=== PATIENT | female | born 1995 | race American Indian/Alaskan Native ===

== ENCOUNTER 2017-01-16 15:33 | Emergency (ER) | payer OTHER ==
[2017-01-16] MEDS ORDERED: MOTRIN PO ONE (16:53)
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
--- NOTE | 2017-01-16 17:34 | Cat Scan Report ---
FINAL REPORT PROCEDURE: CT HEAD/BRAIN WO CON TECHNIQUE: Computerized tomography of the head was performed without contrast material. HISTORY: Trauma HEAD PAIN COMPARISON: No prior studies are available for comparison. FINDINGS: Brain: Brain density appears normal. No evidence of intracranial hemorrhage. No parenchymal hemorrhage, mass lesions or mass effect are seen. No abnormal extraxial fluid collects or masses are seen. Ventricles: Ventricles are normal size and are midline. Bone Windows: No evidence of skull fracture. Paranasal sinuses: Clear Mastoid air cells: Clear IMPRESSION: Negative exam. No evidence of intracranial hemorrhage or skull fracture.
--- NOTE | 2017-01-16 17:37 | Cat Scan Report ---
FINAL REPORT PROCEDURE: CT CERVICAL SPINE WO CON TECHNIQUE: Computerized tomography of the cervical spine was performed from the skull base to T1 without contrast material. HISTORY: Trauma NECK PAIN COMPARISON: No prior studies are available for comparison. FINDINGS: No fracture or subluxation is identified.. Prevertebral soft tissues appear normal. Bone density appears normal. Posterior elements are intact. No focal disc herniation or spinal stenosis is identified. C1-2: No significant abnormality. C2-3: No significant abnormality. C3-4: No significant abnormality. C4-5: No significant abnormality. C5-6: No significant abnormality. C6-7: No significant abnormality. C7-T1: No significant abnormality. Other: No additional findings. IMPRESSION: Negative exam. No fracture or subluxation is seen.
[2017-01-16 19:22] VITALS: BP 147/99
--- NOTE | 2017-01-17 07:39 | XRay Report ---
THORACIC SPINE: History: Back pain, injury. There is moderate dextroscoliosis in the mid and lower thoracic spine. No evidence for compression deformity, subluxation or bone lesion. The posterior ribs are unremarkable. IMPRESSION: Scoliosis. No acute injury is identified.
--- NOTE | 2017-01-17 07:40 | XRay Report ---
LUMBOSACRAL SPINE, 3 VIEWS: History: Back pain Findings: The vertebral bodies, disk spaces and posterior elements are intact. No compression deformity or malalignment. The SI joints are symmetric and unremarkable. Impression: 1. No evidence for acute injury to the lumbar spine.
== END 2017-01-16 18:45 | disposition home or self-care (01) ==
LOC: ED 15:33
DX: S16.1XXA Strain of muscle, fascia and tendon at neck level, initial encounter (principal); V49.49XA Driver injured in collision with other motor vehicles in traffic accident, initial encounter; Y93.9 Activity, unspecified; Y92.9 Unspecified place or not applicable; Y99.9 Unspecified external cause status
CPT/HCPCS: 70450; 72070; 72100; 72125; 99284

== ENCOUNTER 2019-04-22 19:55 | Emergency (ER) | payer OTHER ==
--- NOTE | 2019-04-22 20:15 | Emergency Department Report ---
ED General Adult HPI - General Stated complaint: HBP, N/V Time Seen by Provider: 04/22/19 20:13 - History of Present Illness Initial comments: 23-year-old female with a history of end-stage renal disease, gastroparesis, hypertension, and diabetes presents with the complaint of vomiting. Patient apparently was treated at the [facility] 2 times today and left AMA and was only able to tolerate Zofran. Patient and called EMS and was flavio t to this facility for management. Patient states that she went to dialysis earlier today. Patient states she's been noncompliant with her hypertensive therapy. Patient denies any chest pain. Patient denies any fever or chills. - Related Data Home Medications Medication Instructions Recorded Confirmed Last Taken Cholecalciferol (Vitd3)/Vit K2 [D3 1 each PO 1XW 07/08/17 07/08/17 Unknown + K2 Dots 1,000 Units Tab] Previous Rx's Medication Instructions Recorded Last Taken Type Insulin Glargine,Hum.rec.anlog 20 units SQ HS 30 Days vial 07/11/17 Unknown Rx [Lantus] Insulin Regular, Human [HumuLIN R] 5 - 8 units SQ QACHS 30 Days units 07/11/17 Unknown Rx Pantoprazole [Protonix TAB] 20 mg PO BID #60 tablet. 07/11/17 Unknown Rx Sucralfate [Carafate] 1 gm PO ACHS #90 tablet 07/11/17 Unknown Rx amLODIPine [Norvasc] 5 mg PO DAILY #30 tab 07/11/17 Unknown Rx Allergies Allergy/AdvReac Type Severity Reaction Status Date / Time NSAIDS (Non-Steroidal Allergy Unknown Verified 04/22/19 20:29 Anti-Inflamma ED Review of Systems ROS: Stated complaint: HBP, N/V Other details as noted in HPI Constitutional: denies: chills, fever Eyes: denies: eye pain, eye discharge, vision change ENT: denies: ear pain, throat pain Respiratory: denies: cough, shortness of breath, wheezing Cardiovascular: denies: chest pain, palpitations Endocrine: no symptoms reported Gastrointestinal: nausea, vomiting. denies: abdominal pain, diarrhea Genitourinary: denies: urgency, dysuria, discharge Musculoskeletal: denies: back pain, joint swelling, arthralgia Skin: denies: rash, lesions Neurological: denies: headache, weakness, paresthesias Psychiatric: denies: anxiety, depression Hematological/Lymphatic: denies: easy bleeding, easy bruising ED Past Medical Hx - Past Medical History Hx Hypertension: Yes Hx Diabetes: Yes Hx Renal Disease: Yes - Social History Smoking Status: Never Smoker - Medications Home Medications: Home Medications Medication Instructions Recorded Confirmed Last Taken Type Cholecalciferol (Vitd3)/Vit K2 [D3 1 each PO 1XW 07/08/17 07/08/17 Unknown History + K2 Dots 1,000 Units Tab] Insulin Glargine,Hum.rec.anlog 20 units SQ HS 30 Days vial 07/11/17 Unknown Rx [Lantus] Insulin Regular, Human [HumuLIN R] 5 - 8 units SQ QACHS 30 Days units 07/11/17 Unknown Rx Pantoprazole [Protonix TAB] 20 mg PO BID #60 tablet.dr 07/11/17 Unknown Rx Sucralfate [Carafate] 1 gm PO ACHS #90 tablet 07/11/17 Unknown Rx amLODIPine [Norvasc] 5 mg PO DAILY #30 tab 07/11/17 Unknown Rx ED Physical Exam - General General appearance: alert, other (dry heaving; dehydrated) - Head Head exam: Present: atraumatic, normocephalic - Eye Eye exam: Present: normal appearance - ENT ENT exam: Present: mucous membranes dry - Neck Neck exam: Present: normal inspection - Respiratory Respiratory exam: Present: normal lung sounds bilaterally. Absent: respiratory distress - Cardiovascular Cardiovascular Exam: Present: regular rate, normal rhythm, other (asculatated thrill noted in left upper extremity). Absent: systolic murmur, diastolic murmur, rubs, gallop - GI/Abdominal GI/Abdominal exam: Present: soft, tenderness (mild tenderness noted diffusely without any evidence of rebound or guarding), normal bowel sounds - Extremities Exam Extremities exam: Present: normal inspection - Back Exam Back exam: Present: normal inspection - Neurological Exam Neurological exam: Present: alert, oriented X3 - Psychiatric Psychiatric exam: Present: normal affect, normal mood - Skin Skin exam: Present: warm, dry, intact, normal color. Absent: rash ED Course Vital Signs 04/22/19 04/22/19 04/22/19 20:26 20:29 20:43 Temperature 98.5 F Pulse Rate 93 H 93 H 88 Respiratory 10 L 14 Rate Blood Pressure 246/144 246/144 Blood Pressure 213/130 [Right] O2 Sat by Pulse 100 100 Oximetry 04/22/19 04/22/19 21:22 21:32 Temperature Pulse Rate 93 H 91 H Respiratory 16 Rate Blood Pressure 229/136 Blood Pressure 219/136 [Right] O2 Sat by Pulse 100 Oximetry ED Medical Decision Making - Lab Data Result diagrams: 04/22/19 20:29 04/22/19 20:29 - EKG Data EKG shows normal: sinus rhythm Rate: normal - EKG Data When compared to previous EKG there are: no significant change Interpretation: no acute changes - Medical Decision Making Patient received two doses of Labetalol 20 mg IV * 2 while here in the ER and still continues to have elevated BP. Patient continues to have nausea as well and thus no oral agents were given. Patient to be started on nicardipine antihypertensive therapy while here in the emergency department. Patient to be transferred to him or [facility] this patient is a [facility] patient for continued management and treatment. - Differential Diagnosis Hypertensive URgency; Hypertensive Emergency; CKD; Critical Care Time: Yes Critical care time in (mins) excluding proc time.: 38 Critical care attestation.: If time is entered above; I have spent that time in minutes in the direct care of this critically ill patient, excluding procedure time. Critical care time includes time spent on direct bedside care, physician consultation, and frequent reassesments. ED Disposition Clinical Impression: Hypertensive emergency, Gastroparesis diabeticorum Disposition: [id number] ANOTHER TYPE HLTHCARE Is pt being admited?: No Does the pt Need Aspirin: No Condition: Stable Instructions: Hypertension (ED), Diabetes Mellitus Type 2 in Adults (ED) Referrals: EWA MEDINA MD [Primary Care Provider] - 3-5 Days Time of Disposition: 23:23 Print Language: BULGARIAN
[2019-04-22] MEDS ORDERED: ZOFRAN IV ONE (20:22)
[2019-04-22] MEDS ORDERED: NACL 0.9% 250ML 250 ML IV ONE (20:22)
[2019-04-22] MEDS ORDERED: NORMODYNE IV ONE ×3 (20:22→21:19)
[2019-04-22] MEDS ORDERED: ZOFRAN ONE (20:23)
[2019-04-22 21:01] LABS: Albumin 4.3 g/dL (3.9-5); Calcium 9.1 mg/dL (8.4-10.2)
[2019-04-22 21:07] LABS: Hematocrit 39.5 % (30.3-42.9); Hemoglobin 13.2 gm/dl (10.1-14.3); Mean Corpuscular HGB Conc 33 % (30-34); Mean Corpuscular Volume 91 fl (79-97); Platelet Count 221 K/mm3 (140-440); Red Blood Count 4.32 M/mm3 (3.65-5.03); Red Cell Distribution Width 15.7 % (13.2-15.2)
[2019-04-22] MEDS ORDERED: REGLAN IV STA (21:47)
[2019-04-22] MEDS ORDERED: REGLAN ONE (21:50)
--- NOTE | 2019-04-22 22:56 | XRay Report ---
CHEST 1 VIEW 04/22/2019 10:15 PM INDICATION / CLINICAL INFORMATION: chest pain. COMPARISON: None available. FINDINGS: SUPPORT DEVICES: None. HEART / MEDIASTINUM: No significant abnormality. LUNGS / PLEURA: No significant pulmonary or pleural abnormality. No pneumothorax. ADDITIONAL FINDINGS: No significant additional findings. IMPRESSION: 1. No acute findings. Signer Name: Anthony Morillo MD Signed: 04/22/2019 10:51 PM Workstation Name: [id number]
[2019-04-22] MEDS ORDERED: CARDENE 50 MG in NACL 0.9% 250ML 230 ML IV SCH (23:45)
[2019-04-23] MEDS ORDERED: ZOFRAN IV ONE (02:46)
[2019-04-23] MEDS ORDERED: ZOFRAN ONE (02:49)
[2019-04-23] MEDS: ZOFRAN IV ONE ×2 (02:51→02:53)
[2019-04-23 02:52] VITALS: BP 164/99
[2019-04-23] MEDS ORDERED: PROTONIX IV ONE ×2 (02:58→02:59)
== END 2019-04-23 03:12 | disposition other institution (70) ==
LOC: ED 19:55
DX: E11.43 Type 2 diabetes mellitus with diabetic autonomic (poly)neuropathy (principal); K31.84 Gastroparesis; I10 Essential (primary) hypertension; Z79.4 Long term (current) use of insulin; Z79.899 Other long term (current) drug therapy; Z88.8 Allergy status to other drugs, medicaments and biological substances
CPT/HCPCS: 36415; 71045; 80053; 82962; 83690; 84702; 85027; 93005; 93010; 96365; 96366; 96375; 96376; 99291; C9113; J2405; J2765; J7050